=== PATIENT | female | born 1960 | race African-American/Black ===

== ENCOUNTER 2017-09-10 18:11 | Emergency (ER) | payer SELFPAY ==
[~2017-09-10] VITALS: Ht 157.5 cm; Wt 77.1 kg
[~2017-09-10 18:11] MED LIST: NKM
[2017-09-10 18:12] VITALS: BP 184/98
--- NOTE | 2017-09-10 18:17 | Emergency Room Report ---
History of Present Illness General Chief Complaint: Dizziness Source: EMS (Nayeli Root) Present Illness HPI 57-year-old female presents to the emergency department complaining of intermittent episodes of dizziness that she describes as feeling lightheaded for "weeks "patient also reports intermittent chest pain that she describes as "discomfort". Patient denies cough denies fevers, chills. Patient is post mechanical trip and fall and reports 5 out of 10 in severity right knee pain. Patient denies hitting her head she denies loss of consciousness. Denies MIRAMONTES, visual changes, loss of vision, floaters or photophobia. denies Nausea or Vomiting. Patient reports previous history of schizophrenia years ago which she previously took Geodon to manage auditory hallucinations. Patient states that Geodon was discontinued due to side effects affecting her heart. Patient denies recent symptoms of schizophrenia. Patient states she smokes cigarettes daily and uses energy drinks. denies claudication, recent travel or dyspnea. Patient also reports that she previously was prescribed Depakote for history of seizures which her last seizure was in 2000 and she does not take Depakote anymore. Denies , Palpitations, LOC, AMS, Changes in Vision, Sensation, paresthesias, or a sudden severe headache. (Nayeli Root) Allergies: Coded Allergies: CODEINE (Verified Allergy, Unknown, 09/10/17) Patient History Past Medical History: see triage record, NE, CHF, psych hx Past Surgical History: none Pertinent Family History: none Social History: Reports: smoking Last Menstrual Period: Post Now: No Immunizations: UTD Reviewed Nursing Documentation: PMH: Agreed, PSxH: Agreed (Nayeli Root) Nursing Documentation-PMH Hx Cardiac Problems: Yes - CABG Hx Hypertension: Yes Hx Diabetes: Yes Hx Neurological Problems: Yes - ANXIETY, LEFT ANKLE FRACTURE (Nayeli Root) Review of Systems All Other Systems: negative except mentioned in HPI (Nayeli Root) Physical Exam Vital Signs Date Time Temp Pulse Resp B/P (MAP) Pulse Ox O2 Delivery O2 Flow Rate FiO2 09/10/17 18:02 98.1 80 20 170/91 96 Room Air Sp02 EP Interpretation: reviewed, normal General Appearance: no apparent distress, alert, GCS 15, non-toxic Head: normocephalic, atraumatic Eyes: bilateral eye normal inspection, bilateral eye PERRL, bilateral eye EOMI , bilateral eye other - no nystagmus ENT: hearing grossly normal, normal voice Neck: full range of motion, no bony tend, supple/symm/no masses Respiratory: chest non-tender, lungs clear, normal breath sounds, speaking full sentences Cardiovascular #1: regular rate, rhythm, no edema, normal capillary refill Gastrointestinal: normal bowel sounds, non tender, soft, no guarding, no rebound Rectal: deferred Genitourinary: normal inspection, no CVA tenderness Musculoskeletal: back normal, gait/station normal, normal range of motion, non- tender - no appreciable knee tenderness, no swellling. Neurologic: alert, oriented x3, responsive, motor strength/tone normal, sensory intact, normal gait, speech normal, no pronator, other - negative islas's Psychiatric: judgement/insight normal, memory normal, mood/affect normal, no suicidal/homicidal ideation Skin: normal color, no rash, warm/dry, well hydrated Lymphatic: no adenopathy (Nayeli Root) Medical Decision Making PA Attestation Dr. Leung is my supervising Physician whom patient management has been discussed with. (Nayeli Root PRohan) Diagnostic Impression: Primary Impression: Dizziness of unknown cause ER Course 57-year-old female presents to the emergency department complaining of intermittent episodes of dizziness that she describes as feeling lightheaded for "weeks "patient also reports intermittent chest pain that she describes as "discomfort". Patient denies cough denies fevers, chills. Patient is post mechanical trip and fall and reports 5 out of 10 in severity right knee pain. Patient denies hitting her head she denies loss of consciousness. Denies MIRAMONTES, visual changes, loss of vision, floaters or photophobia. denies Nausea or Vomiting. Patient reports previous history of schizophrenia years ago which she previously took Geodon to manage auditory hallucinations. Patient states that Geodon was discontinued due to side effects affecting her heart. Patient denies recent symptoms of schizophrenia. Patient states she smokes cigarettes daily and uses energy drinks. denies claudication, recent travel or dyspnea. Patient also reports that she previously was prescribed Depakote for history of seizures which her last seizure was in 2000 and she does not take Depakote anymore. Denies , Palpitations, LOC, AMS, Changes in Vision, Sensation, paresthesias, or a sudden severe headache. Ddx considered but are not limited to Mnire's, BPPV, labrinitis, cerebellar stroke, hypovolemia, cardiac cause just to name a few. Vital signs: are WNL, pt. is afebrile H&PE are most consistent with : intermittent dizziness and SOB in a pt. with cardiac hx. no focal neurological deficits, no evidence of infection. ORDERS: -CBC: WNL -CMP: mildly elevated sodium and chloride, remaining values are WNL otherwise. -Troponins, negative -BNP: 281 -CXR:.-CXR: No consolidation, effusion, pneumothorax or acute cardiopulmonary findings, enlarged cardiac silhouette- per soft read in ED by Dr. Leung, this interpretation has been scribed by ADRIANA Root. ED INTERVENTIONS: -d/w pt. results of laboratory testing. d/w pt. importance of cardiology follow up for further evaluation of her symptoms, and possible neurological evaluation. Pt. is given strict ED return precautions for worsening or new symptoms. pt. verbalizes her understanding and agreement with proposed treatment plan. DISCHARGE: At this time pt. is stable for d/c to home. Will provide printed patient care instructions, and any necessary prescriptions. Care plan and follow up instructions have been discussed with the patient prior to discharge. Labs Test 09/10/17 18:15 09/10/17 18:45 Urine Color Yellow Urine Appearance Clear Urine pH 6 (4.5-8.0) Urine Specific [place] 1.020 (1.005-1.035) Urine Protein Negative (NEGATIVE) Urine Glucose (UA) Negative (NEGATIVE) Urine Ketones Negative (NEGATIVE) Urine Occult Blood Negative (NEGATIVE) Urine Nitrite Negative (NEGATIVE) Urine Bilirubin Negative (NEGATIVE) Urine Urobilinogen 4 MG/DL (0.0-1.0) Urine Leukocyte Esterase Negative (NEGATIVE) Urine Opiates Screen Negative (NEGATIVE) Urine Barbiturates Screen Negative (NEGATIVE) Phencyclidine (PCP) Screen Negative (NEGATIVE) Urine Amphetamines Screen Negative (NEGATIVE) Urine Benzodiazepines Screen Negative (NEGATIVE) Urine Cocaine Screen Negative (NEGATIVE) Urine Marijuana (THC) Screen Negative (NEGATIVE) White Blood Count 10.9 K/UL (4.8-10.8) Red Blood Count 5.10 M/UL (4.20-5.40) Hemoglobin 12.7 G/DL (12.0-16.0) Hematocrit 43.3 % (37.0-47.0) Mean Corpuscular Volume 85 FL (80-99) Mean Corpuscular Hemoglobin 25.0 PG (27.0-31.0) Mean Corpuscular Hemoglobin Concent 29.4 G/DL (32.0-36.0) Red Cell Distribution Width 14.1 % (11.6-14.8) Platelet Count 313 K/UL (150-450) Mean Platelet Volume 7.4 FL (6.5-10.1) Neutrophils (%) (Auto) 64.1 % (45.0-75.0) Lymphocytes (%) (Auto) 25.3 % (20.0-45.0) Monocytes (%) (Auto) 4.3 % (1.0-10.0) Eosinophils (%) (Auto) 5.1 % (0.0-3.0) Basophils (%) (Auto) 1.2 % (0.0-2.0) Sodium Level 148 MMOL/L (136-145) Potassium Level 3.8 MMOL/L (3.5-5.1) Chloride Level 110 MMOL/L (98-107) Carbon Dioxide Level 27 MMOL/L (21-32) Anion Gap 11 mmol/L (5-15) Blood Urea Nitrogen 15 mg/dL (7-18) Creatinine 0.9 MG/DL (0.55-1.30) Estimat Glomerular Filtration Rate > 60 mL/min (>60) Glucose Level 100 MG/DL (74-106) Calcium Level 10.2 MG/DL (8.5-10.1) Total Bilirubin 0.4 MG/DL (0.2-1.0) Aspartate Amino Transf (AST/SGOT) 13 U/L (15-37) Alanine Aminotransferase (ALT/SGPT) 16 U/L (12-78) Alkaline Phosphatase 108 U/L (46-116) Troponin I 0.008 ng/mL (0.000-0.056) Pro-B-Type Natriuretic Peptide 281 pg/mL (0-125) Total Protein 7.6 G/DL (6.4-8.2) Albumin 3.6 G/DL (3.4-5.0) Globulin 4.0 g/dL Albumin/Globulin Ratio 0.9 (1.0-2.7) (Nayeli Root) ER Course I agree with ADRIANA's XR interpretation results electronically signed by Gavi Leung MD (Gavi Leung M.D.) EKG Diagnostic Results EP Interpretation: Dr. Leung Rate: normal Rhythm: NSR ST Segments: no acute changes Other Impression non specific T wave changes, prolonged QT. ASA given to the pt in ED: No PA Scribe Text Dr. Leung's preliminary interpretation has been scribed by ADRIANA Root (Nayeli Root P.ARozina) Last Vital Signs Date Time Temp Pulse Resp B/P (MAP) Pulse Ox O2 Delivery O2 Flow Rate FiO2 09/10/17 18:02 98.1 80 20 170/91 96 Room Air (Nayeli Root) Disposition: HOME, SELF-CARE Condition: Stable Patient Instructions: Dizziness Additional Instructions: Take any previously prescribed medications as directed. Follow up with a [employer] & Primary Care Provider within 3 days, even if your symptoms have resolved. --Please review list of primary care clinics, if you do not already have a primary care provider Return sooner to ED if new symptoms occur, or current symptoms become worse. - Please note that this Emergency Department Report was dictated using [employer] researcher technology software, occasionally this can lead to erroneous entry secondary to interpretation by the dictation equipment. Nayeli Root Sep 10, 2017 18:17 Gavi Leung M.D. Sep 14, 2017 06:30
[2017-09-10 19:01] LABS: APPEARANCE,URINE CLEAR; KETONES,URINE NEGATIVE (NEGATIVE); LEUKOCYTE ESTERASE ,URINE NEGATIVE (NEGATIVE); NITRITE,URINE NEGATIVE (NEGATIVE); PH,URINE 6 (4.5-8.0); PROTEIN,URINE NEGATIVE (NEGATIVE); UROBILINOGEN,URINE 4 MG/DL (0.0-1.0)
[2017-09-10 19:01] LABS: BASOPHILS % (AUTO) 1.2 % (0.0-2.0); EOSINOPHILS % (AUTO) 5.1 % (0.0-3.0); LYMPHOCYTES % (AUTO) 25.3 % (20.0-45.0); MEAN CORPUSCULAR HGB CONC 29.4 G/DL (32.0-36.0); MEAN CORPUSCULAR VOLUME 85 FL (80-99); MEAN PLATELET VOLUME 7.4 FL (6.5-10.1); MONOCYTES % (AUTO) 4.3 % (1.0-10.0); NEUTROPHILS % (AUTO) 64.1 % (45.0-75.0); PLATELET COUNT 313 K/UL (150-450); RED CELL DISTRIBUTION WIDTH 14.1 % (11.6-14.8); WHITE BLOOD COUNT 10.9 K/UL (4.8-10.8)
[2017-09-10 19:20] LABS: ALANINE AMINOTRANSFERASE 16 U/L (12-78); ALBUMIN/GLOBULIN RATIO 0.9 (1.0-2.7); ANION GAP 11 mmol/L (5-15); ASPARTATE AMINO TRANSFERASE 13 U/L (15-37); CALCIUM 10.2 MG/DL (8.5-10.1); CARBON DIOXIDE 27 MMOL/L (21-32); CHLORIDE 110 MMOL/L (98-107); CREATININE 0.9 MG/DL (0.55-1.30); GLOMERULAR FILTRATION RATE > 60 mL/min (>60); POTASSIUM 3.8 MMOL/L (3.5-5.1); SODIUM 148 MMOL/L (136-145); TOTAL PROTEIN 7.6 G/DL (6.4-8.2)
[2017-09-10 22:14] VITALS: BP 152/90
[2017-09-10 23:00] VITALS: BP 152/90
--- NOTE | 2017-09-11 11:52 | Diagnostic Imaging Report ---
Indication: Chest pain Technique: One view of the chest Comparison: none Findings: Lungs and pleural spaces are clear. Heart size is upper limits normal Impression: No acute process
--- NOTE | 2017-09-11 16:37 | Cardiology Report ---
APPROVED REPORT EKG Measurement Heart [id number] Normal sinus rhythm Voltage criteria for left ventricular hypertrophy Nonspecific T wave abnormality Prolonged QT Abnormal ECG
== END 2017-09-10 23:01 ==
LOC: EDBD 18:11 → EMR 19:43
DX: R42 Dizziness and giddiness (principal); I10 Essential (primary) hypertension; E11.9 Type 2 diabetes mellitus without complications; Z95.1 Presence of aortocoronary bypass graft; Z88.6 Allergy status to analgesic agent
CPT/HCPCS: 36415; 71010; 80053; 80307; 81003; 83880; 84484; 85025; 93005; 99283